=== PATIENT | female | born 1985 | race Caucasian/White ===

== ENCOUNTER 2017-11-06 22:56 | Emergency (ER) | payer BC, OTHER ==
[2017-11-07 03:50] LABS: TROPONIN-I < 0.012 ng/ml (0.00-0.12)
== END 2017-11-07 04:11 | disposition home or self-care (01) ==
LOC: FTE 22:56
DX: N64.4 Mastodynia (principal)
CPT/HCPCS: 36415; 71045; 84484; 93005; 99285-25